=== PATIENT | male | born 1960 | race Caucasian/White ===

== ENCOUNTER 2016-10-29 11:54 | Emergency (ER) | payer MEDICARE ==
[2016-10-29 12:24] VITALS: BP 136/79
--- NOTE | 2016-10-29 12:38 | UC ---
UC General HPI - HPI Summary HPI Summary: Patient woke up with a feeling of something in his throat, felt like it was hard to swallow. - History of Current Complaint Chief Complaint: UCRespiratory Stated Complaint: THROAT COMPLAINT Time Seen by Provider: 10/29/16 12:23 Hx Obtained From: Patient Onset/Duration: Sudden Onset, Lasting Days Timing: Constant Onset Severity: Moderate Current Severity: Moderate - Allergy/Home Medications Allergies/Adverse Reactions: Allergies Allergy/AdvReac Type Severity Reaction Status Date / Time Omeprazole Allergy Severe RESPIRATORY Verified 10/29/16 12:19 PROBLEMS Penicillins Allergy Severe Hives Verified 10/29/16 12:19 Sulfa Antibiotics Allergy Severe Vomiting Verified 10/29/16 12:19 Aspirin AdvReac Severe stomach Verified 10/29/16 12:19 pain n/v PMH/Surg Hx/FS Hx/Imm Hx Previously Healthy: Yes Endocrine History Of: Denies: Diabetes, Thyroid Disease Cardiovascular History Of: Reports: Hypertension Denies: Cardiac Disorders Respiratory History Of: Reports: Asthma Denies: COPD GI/ History Of: Denies: Ulcer - Surgical History Surgical History: Yes Surgery Procedure, Year, and Place: 1967 double hernia as child [place]. 2002 [facility]. 11/24/12 - hernia repair with mesh. Urology was scoped and has a "baby" kidney stone - Family History Known Family History: Positive: None, Other - "leaky heart valve" - mother - Social History Alcohol Use: Occasionally Substance Use Type: None Smoking Status (MU): Former Smoker When Did the Patient Quit Smoking/Using Tobacco: 14 YEARS AGO Review of Systems Constitutional: Negative Skin: Negative Eyes: Negative ENT: Sore Throat Respiratory: Negative Cardiovascular: Negative Gastrointestinal: Negative Genitourinary: Negative Motor: Negative Neurovascular: Negative Musculoskeletal: Negative Neurological: Negative Psychological: Negative All Other Systems Reviewed And Are Negative: Yes Physical Exam Triage Information Reviewed: Yes Appearance: Well-Appearing, Well-Nourished, Pain Distress Vital Signs: Initial Vital Signs Temp 98.3 F 10/29/16 12:21 Pulse 69 10/29/16 12:21 Resp 14 10/29/16 12:21 BP 136/79 10/29/16 12:21 Pulse Ox 99 10/29/16 12:21 Vital Signs Reviewed: Yes Eye Exam: Normal Eyes: Positive: Conjunctiva Clear ENT Exam: Normal ENT: Positive: Normal ENT inspection, Hearing grossly normal, Pharynx normal, TMs normal Dental Exam: Normal Neck exam: Normal Neck: Positive: Supple, Nontender, No Lymphadenopathy Respiratory Exam: Normal Respiratory: Positive: Chest non-tender, Lungs clear, Normal breath sounds Cardiovascular Exam: Normal Cardiovascular: Positive: RRR, No Murmur, Pulses Normal Abdominal Exam: Normal Abdomen Description: Positive: Nontender, No Organomegaly, Soft Bowel Sounds: Positive: Present Musculoskeletal Exam: Normal Musculoskeletal: Positive: Strength Intact, ROM Intact, No Edema Neurological Exam: Normal Neurological: Positive: Alert, Muscle Tone Normal Psychological Exam: Normal Skin Exam: Normal Course/Dx - Course Course Of Treatment: hx obtained, exam performed, meds reviewed, PO fluid and solid food intake ability observed, no difficulty, no thyroidmegaly, no carotid bruits ascultated. to masses or discomfort on palpation. encouraged follow up if symptoms persist with OTC measures. - Differential Dx - Multi-Symptom Provider Diagnoses: dysphagia Discharge - Discharge Plan Condition: Stable Disposition: HOME Patient Education Materials: Dysphagia (ED) Referrals: Vineet Jaquez MD [Primary Care Provider] - Additional Instructions: 1. Start with warm water and lemon to help with any build up off mucus. 2. Mucinex 1 pill twice a day for the next few days. 3. If your issues continues I recommend follow up with your primary provider.
== END 2016-10-29 12:49 | disposition home or self-care (01) ==
LOC: UCEAST 11:54
DX: R13.10 Dysphagia, unspecified (principal); Z87.891 Personal history of nicotine dependence; Z88.0 Allergy status to penicillin; Z88.2 Allergy status to sulfonamides
CPT/HCPCS: 99211; G0463

== ENCOUNTER 2017-06-16 07:16 | Emergency (ER) | payer MEDICARE, BC ==
[2017-06-16 07:36] VITALS: BP 123/78
--- NOTE | 2017-06-16 07:54 | UC ---
Respiratory Complaint HPI - HPI Summary HPI Summary: 57 yo male with cough x 3 days brown sputum no CP or SOB Hx asthma denies any wheezing no n/v/d - History of Current Complaint Chief Complaint: UCRespiratory Stated Complaint: COUGH CONGESTION SORE THROAT Time Seen by Provider: 06/16/17 07:44 Hx Obtained From: Patient Onset/Duration: Gradual Onset, Lasting Days - 3 Timing: Constant Severity Initially: Mild Severity Currently: Moderate Pain Intensity: 2 Pain Scale Used: 0-10 Numeric Character: Cough: Productive, Sputum Description: - brown Aggravating Factors: Exertion, Recumbent Position Associated Signs And Symptoms: Positive: Negative - Allergies/Home Medications Allergies/Adverse Reactions: Allergies Allergy/AdvReac Type Severity Reaction Status Date / Time Omeprazole Allergy Severe RESPIRATORY Verified 06/16/17 07:31 PROBLEMS Penicillins Allergy Severe Hives Verified 06/16/17 07:31 Sulfa Antibiotics Allergy Severe Vomiting Verified 06/16/17 07:31 Aspirin AdvReac Severe stomach Verified 06/16/17 07:31 pain n/v PMH/Surg Hx/FS Hx/Imm Hx Previously Healthy: Yes Cardiovascular History: Hypertension Respiratory History: Asthma - Surgical History Surgical History: Yes Surgery Procedure, Year, and Place: 1966 double hernia as child [place]. 2002 [facility]. 11/24/12 - hernia repair with mesh. Urology was scoped and has a "baby" kidney stone - Family History Known Family History: Positive: Hypertension, Other - "leaky heart valve" - mother Negative: Cardiac Disease, Diabetes - Social History Alcohol Use: Occasionally Substance Use Type: None Smoking Status (MU): Former Smoker When Did the Patient Quit Smoking/Using Tobacco: 14 YEARS AGO - Immunization History Most Recent Influenza Vaccination: none Review of Systems Constitutional: Negative Skin: Negative Eyes: Negative ENT: Negative Respiratory: Cough Cardiovascular: Negative Gastrointestinal: Negative Genitourinary: Negative Motor: Negative Neurovascular: Negative Musculoskeletal: Negative Neurological: Negative Psychological: Negative Is Patient Immunocompromised?: No All Other Systems Reviewed And Are Negative: Yes Physical Exam Triage Information Reviewed: Yes Appearance: Well-Appearing, No Pain Distress, Well-Nourished, Thin Vital Signs: Initial Vital Signs Temp 100.5 F 06/16/17 07:29 Pulse 98 06/16/17 07:29 Resp 18 06/16/17 07:29 BP 123/78 06/16/17 07:29 Pulse Ox 97 06/16/17 07:29 Vital Signs Reviewed: Yes Eyes: Positive: Conjunctiva Clear ENT: Positive: Hearing grossly normal, TMs normal, Uvula midline. Negative: Nasal congestion, Nasal drainage, Tonsillar swelling, Tonsillar exudate, Trismus , Muffled voice, Hoarse voice, Sinus tenderness Dental: Negative: Abscess @ Neck: Positive: Supple, Nontender, No Lymphadenopathy Respiratory: Positive: Lungs clear, Normal breath sounds, No respiratory distress, No accessory muscle use Cardiovascular: Positive: RRR, No Murmur. Negative: Tachycardia, Bradycardia Musculoskeletal: Positive: ROM Intact, No Edema Neurological: Positive: Alert Psychological Exam: Normal Skin Exam: Normal UC Diagnostic Evaluation - Laboratory O2 Sat by Pulse Oximetry: 97 - normal/not hypoxic - Radiology Xray Interpretation: Positive (See Comments) - Mild consolidation at the RIGHT middle lobe most consistent with pneumonia Radiology Interpretation Completed By: Radiologist Respiratory Course/Dx - Differential Dx/Diagnosis Provider Diagnoses: RML pneumonia Discharge - Discharge Plan Condition: Stable Disposition: HOME Prescriptions: DOXYcycline CAP(*) [DOXYcycline 100MG CAP(*)] 100 mg PO BID #20 cap Referrals: Vineet Jaquez MD [Primary Care Provider] - 5 Days () Additional Instructions: rest fluids plain mucinex or robitussin recheck for worsening symptoms
--- NOTE | 2017-06-16 08:10 | RAD ---
INDICATION: 3 days cough. Low-grade fever. COMPARISON: No relevant prior exams available on the [facility] for comparison. TECHNIQUE: Dual energy PA and routine lateral views of the chest were obtained. REPORT: Mild alveolar consolidation at the RIGHT middle lobe without volume loss. Negative for pleural effusion or pneumothorax. The heart, pulmonary vasculature, and mediastinal contours are unremarkable. IMPRESSION: Mild consolidation at the RIGHT middle lobe most consistent with pneumonia given the clinical context.
== END 2017-06-16 08:30 | disposition home or self-care (01) ==
LOC: UCEAST 07:16
DX: J18.9 Pneumonia, unspecified organism (principal); Z72.89 Other problems related to lifestyle; Z87.891 Personal history of nicotine dependence
CPT/HCPCS: 71020; 99212; G0463

== ENCOUNTER 2019-07-24 12:19 | Emergency (ER) | payer BC, MEDICARE ==
[2019-07-24] MEDS ORDERED: NS 0.9% 1000 ML** 1,000 ML IV ONE (12:35)
--- NOTE | 2019-07-24 12:38 | ED ---
Hypertension - HPI Summary HPI Summary: This pt is a 59 Y/O M presenting to [facility] accompanied by his by EMS. He states that he was having balance issues this morning without any lack of muscle , visual or AMS. He had a MRI recently that found a mass that was benign and determined as inoperable. He denies any fever, N/V, abdominal pain, headache, and chills. He states that he was working on a dog gate while sitting down and felt lightheaded when he stood up. He states that he is still feeling lightheaded currently. He states that his recent MRI taken 7 months ago show that his mass is stable and is not increasing in size. He states no alleviating factors. He has a PMHx of hypertension, hypoglycemia, and diabetes. He states that the mass on his brain was determined to be chronic and present since . His HTN is currently treated with 5 mgs Lisinopril that he takes around 1030 every morning. - History of Current Complaint Chief Complaint: EDHypertension Stated Complaint: HIGH BP PER FAMILY Time Seen by Provider: 07/24/19 12:33 Hx Obtained From: Patient Onset/Duration: Started Minutes Ago - 1 YEAR [employer] Timing: Constant Aggravating Factor(s): Position - from sitting to erect Associated Signs & Symptoms: Negative - fever, N/V, abdominal pain, headache, and chills, Dizziness - lightheaded Current Medications: Other - 5 mgs Lisinopril - Allergies/Home Medications Allergies/Adverse Reactions: Allergies Allergy/AdvReac Type Severity Reaction Status Date / Time MS Omeprazole [Omeprazole] Allergy Severe RESPIRATORY Verified 06/16/17 07:31 PROBLEMS MS Penicillins [Penicillins] Allergy Severe Hives Verified 06/16/17 07:31 MS Sulfa Antibiotics Allergy Severe Vomiting Verified 06/16/17 07:31 [Sulfa Antibiotics] MS Aspirin [Aspirin] AdvReac Severe stomach Verified 06/16/17 07:31 pain n/v PMH/Surg Hx/FS Hx/Imm Hx Previously Healthy: Yes Endocrine/Hematology History: Denies: Hx Diabetes, Hx Thyroid Disease Cardiovascular History: Reports: Hx Hypertension - ON MEDS, Other Cardiovascular Problems/Disorders - hyperglycemia Respiratory History: Reports: Hx Asthma Denies: Hx Chronic Obstructive Pulmonary Disease (COPD) GI History: Denies: Hx Ulcer Sensory History: Reports: Hx Contacts or Glasses - glasses inst given Denies: Hx Hearing Aid Opthamlomology History: Reports: Hx Contacts or Glasses - glasses inst given - Cancer History Hx Chemotherapy: No Hx Radiation Therapy: No - Surgical History Surgical History: Yes Surgery Procedure, Year, and Place: 1966 [facility] child [place]. Urology was scoped and has a "baby" kidney stone Hx Anesthesia Reactions: Yes - Was told he has small airway inst to tell anesthiologist shaking crying po - Immunization History Immunizations Up to Date: Yes Infectious Disease History: No Infectious Disease History: Denies: Hx Clostridium Difficile, Hx Hepatitis, Hx Human Immunodeficiency Virus (HIV), Hx of Known/Suspected MRSA, Hx Shingles, Hx Tuberculosis, Hx Known/ Suspected VRE, Hx Known/Suspected VRSA, History Other Infectious Disease, Traveled Outside the in Last 30 Days - Family History Known Family History: Positive: Hypertension, Other - "leaky heart valve" - mother Negative: Cardiac Disease, Diabetes - Social History Occupation: Retired Lives: With Family Alcohol Use: states social, very rare Hx Substance Use: No Substance Use Type: Reports: None Hx Tobacco Use: Yes Smoking Status (MU): Former Smoker Amount Used/How Often: 2 PPD, Quit in 2002 Household Exposure: No Review of Systems Positive: Other - lightheaded. Negative: Fever, Chills Negative: Abdominal Pain, Vomiting, Nausea Negative: Headache All Other Systems Reviewed And Are Negative: Yes Physical Exam - Summary Physical Exam Summary: Constitutional: Well-developed, Well-nourished, Alert. (-) Distressed Skin: Warm, Dry HENT: Normocephalic; Atraumatic Eyes: Conjunctiva normal Neck: Musculoskeletal ROM normal neck. (-) JVD, (-) Stridor, (-) Tracheal deviation Cardio: Rhythm regular, rate normal, Heart sounds normal; Intact distal pulses; The pedal pulses are 2+ and symmetric. Radial pulses are 2+ and symmetric. Pulmonary/Chest wall: Effort normal. (-) Respiratory distress, (-) Wheezes, (-) Rales Abd: Soft, (-) tenderness, (-) Distension, (-) Guarding, (-) Rebound Musculoskeletal: (-) Edema Neuro: Alert, Oriented x3 Psych: Mood and affect Normal Triage Information Reviewed: Yes Vital Signs On Initial Exam: Initial Vitals Temp Pulse Resp BP Pulse Ox 97.8 F 66 16 162/106 100 07/24/19 12:24 07/24/19 12:24 07/24/19 12:24 07/24/19 12:24 07/24/19 12:24 Vital Signs Reviewed: Yes Procedures - Sedation Patient Received Moderate/Deep Sedation with Procedure: No Diagnostics - Vital Signs Vital Signs Temp Pulse Resp BP Pulse Ox 07/24/19 12:24 97.8 F 66 16 162/106 100 - Laboratory Result Diagrams: 07/24/19 12:43 07/24/19 12:43 Lab Statement: Any lab studies that have been ordered have been reviewed, and results considered in the medical decision making process. - CT Brain CT CT Interpretation Completed By: Radiologist Summary of CT Findings: 1. NO EVIDENCE FOR ACUTE INTRACRANIAL ABNORMALITY. 2. SMALL CSF DENSITY COLLECTION POSTERIOR TO THE LEFT CEREBELLAR HEMISPHERE, UNCHANGED. SUGGESTIVE OF AN ARACHNOID CYST OR SUBDURAL HYGROMA. ED physician has reviewed this report. - EKG 1241 Cardiac Rate: NL - 65 BPM EKG Rhythm: Sinus Rhythm ST Segment: Normal Ectopy: None Summary of EKG Findings: An EKG at 1241 reveals NSR at 65 BPM, nml axis, nml intervals. No STEMI. No acute changes. Interpreted by Dr. Alonzo, 07/24/2019 1243 Hypertension Course/Dx - Course Course Of Treatment: This pt is a 59 Y/O M presenting to [facility] accompanied by his by EMS. He states that he was having balance issues this morning without any lack of muscle, visual or AMS. He had a MRI recently that found a mass that was benign and determined as inoperable. He denies any fever, N/V, abdominal pain, headache, and chills. He states that he was working on a dog gate while sitting down and felt lightheaded when he stood up. He states that he is still feeling lightheaded currently. PMHx of hypertension, hypoglycemia, and diabetes. He states that the mass on his brain was determined to be chronic and present since . His PE found no abnormalities. An EKG at 1241 reveals NSR at 65 BPM, nml axis, nml intervals. No STEMI. No acute changes. His Brain CT has shows the following results: 1. NO EVIDENCE FOR ACUTE INTRACRANIAL ABNORMALITY. 2. SMALL CSF DENSITY COLLECTION POSTERIOR TO THE LEFT CEREBELLAR HEMISPHERE, UNCHANGED SUGGESTIVE OF AN ARACHNOID CYST OR SUBDURAL HYGROMA. He will be discharged with a Dx of dizziness and a headache. Pt is ambulatory with a steady gate and no ataxia. - Diagnoses Provider Diagnoses: Dizziness, Headache Discharge ED - Sign-Out/Discharge Documenting (check all that apply): Patient Departure - discharge - Discharge Plan Condition: Stable Disposition: HOME Patient Education Materials: Acute Headache (ED), Dizziness (ED) Referrals: Vineet Jaquez MD [Primary Care Provider] - 2 Days Additional Instructions: PLEASE FOLLOW UP WITH YOUR PRIMARY CARE PROVIDER IN 1-3 DAYS AND RETURN TO THE EMERGENCY DEPARTMENT FOR ANY NEW OR WORSENINS SYMPTOMS. - Attestation Statements Document Initiated by Tiffanieibe: Yes Documenting Scribe: Julio aBuer Provider For Whom Jenaro is Documenting (Include Credential): Valentin Alonzo DO [employer] Attestation: Julio You, scribed for Valentin Alonzo DO on 07/24/19 at 1519. Status of Scribe Document: Ready
[2019-07-24 12:50] LABS: ABS Eosinophils 0.1 10^3/ul (0-0.6); ABS Lymphocytes 0.9 10^3/ul (1.0-4.8); ABS Monocytes 0.5 10^3/ul (0-0.8); ABS Neutrophils 3.6 10^3/ul (1.5-7.7); Eosinophil % 1.1 %; Hematocrit 44 % (42-52); Mean Corpuscular HGB Conc 34 g/dL (31-36); Mean Corpuscular Hemoglobin 30 pg (27-31); Mean Corpuscular Volume 87 fL (80-94); Nucleated Red Blood Cells % 0.1; Platelet Count 191 10^3/uL (150-450); Red Blood Count 5.04 10^6 /uL (4.18-5.48); Red Cell Distribution Width 14 % (10-15); White Blood Count 5.1 10^3/uL (3.5-10.8)
[2019-07-24 13:07] LABS: Potassium 4.3 mmol/L (3.5-5.0)
[2019-07-24 13:08] LABS: Albumin 4.4 g/dL (3.2-5.2); Albumin/Globulin Ratio 1.4 (1-3); Calcium 9.8 mg/dL (8.6-10.3); EGFR African American 102.8 (>60); Globulin 3.2 g/dL (2-4); Total Bilirubin 0.7 mg/dL (0.2-1.0); Total Protein 7.6 g/dL (6.4-8.9)
[2019-07-24 15:09] VITALS: BP 130/81
== END 2019-07-24 15:22 | disposition home or self-care (01) ==
LOC: ED 12:19
DX: R42 Dizziness and giddiness (principal); R51 Headache; I10 Essential (primary) hypertension; E03.9 Hypothyroidism, unspecified; E11.9 Type 2 diabetes mellitus without complications; Z87.891 Personal history of nicotine dependence
CPT/HCPCS: 36415; 70450; 80053; 84484; 85025; 93005; 96360; 96361; 99283